=== PATIENT | female | born 1945 | race Caucasian/White ===

== ENCOUNTER → 2017-01-05 | Outpatient (CLI) | payer OTHER ==
--- NOTE | ~2017-01-05 | MY29 ---
[facility] A Service of [facility] RADIOLOGY TEXT RESULTS PATIENT: GREGORIA GARCIA LOCATION: [facility] : 41 UNIT #: [id number] AGE: [address]: Santhosh Florian MD SEX: F ORDER DR: [id number] [facility] [address] [place], [place] [address] [id number] O MR#: [id number] #: [id number] NAME: GREGORIA GARCIA : 1945 SEX: F STUDY DATE/TIME: 01/05/2017 14:48 UNIT: [facility] ROOM: STUDY DESCRIPTION: MY GIOVANNI SCREENING W/ CAD BILAT Attending Physician: Santhosh Florian M.D. Referring Physician: Santhosh Florian M.D. Ordering Physician: Santhosh Florian M.D. Primary Care Physician: Santhosh Florian M.D. MEDICAL IMAGING REPORT This report is preliminary unless electronic signature is present EXAM Bilateral digital screening mammogram with CAD 01/05/2017 INDICATIONS 71-year-old female for routine screening. No reported problems and no personal or family history of breast cancer. No surgeries. 20 pound weight loss since her last mammogram. TECHNIQUE CC and MLO views of the breasts were obtained and reviewed with an approved CAD device. Exaggerated CC lateral view performed on the left. COMPARISON 01/29/11, 01/21/11, 02/23/08 FINDINGS Breast parenchyma is heterogeneously dense with a fibronodular pattern. This is unchanged but degrades the sensitivity of screening mammography. There is no new dominant nodule or mass in either breast. No new suspicious clustered microcalcifications. Benign calcifications and benign-appearing nodularity not significantly changed. IMPRESSION 1. Benign dense mammogram. One year follow up recommended. Patients over the age of 40 are entered into a reminder system with target due date for the next mammogram. A result letter will also be sent to the patient. BIRADS: 2- benign findings Dictated by... Jose Clark M.D. [facility] A Service of [facility] RADIOLOGY TEXT RESULTS PATIENT: GREGORIA GARCIA LOCATION: [facility] : 41 UNIT #: [id number] AGE: [address]: Santhosh Florian MD SEX: F ORDER DR: THIS IS AN ELECTRONICALLY VERIFIED REPORT Jose Clark M.D. at 01/06/2017 5:23 PM Bo TD: 01/06/2017 13:27 JOB #: [id number] MEDICAL IMAGING REPORT Page 1 of 1 COPY
--- NOTE | ~2017-01-05 | CT138 ---
[facility] A Service of [facility] RADIOLOGY TEXT RESULTS PATIENT: GREGORIA GARCIA LOCATION: [facility] : 41 UNIT #: [id number] AGE: [address]: Santhosh Florian MD SEX: F ORDER DR: [id number] [facility] [address] [place], [place] [address] [id number] O MR#: [id number] Acc #: [id number] NAME: GREGORIA GARCIA : 1945 SEX: F STUDY DATE/TIME: 01/05/2017 15:15 UNIT: [facility] ROOM: STUDY DESCRIPTION: CT Lung screening initial Attending Physician: Santhosh Florian M.D. Referring Physician: Santhosh Florian M.D. Ordering Physician: Santhosh Florian M.D. Primary Care Physician: Santhosh Florian M.D. MEDICAL IMAGING REPORT This report is preliminary unless electronic signature is present EXAM CT lung cancer screening. INDICATIONS Lung cancer screening. 55-pack/year smoking history. PROCEDURE Unenhanced low-dose CT of the chest performed per lung cancer screening protocol. This CT exam was performed with one or more of the following radiation dose reduction techniques: automatic exposure control, adjustment of mA and/or kV according to patient size, and iterative reconstruction. CTDI 2.6 mGy, total DLP 99 mGycm COMPARISON None FINDINGS There is a 5-mm somewhat irregular nodule in the right apex. No other nodule is seen. No adenopathy. No acute findings in the included upper abdomen. No aggressive-appearing bone lesion. IMPRESSION 5-mm nodule in the right apex. Lung-RADS category: 3 - probably benign. Per the ACR Lung-RADS recommendation, suggest patient return for a 6-month followup low-dose chest CT. [facility] A Service [facility] RADIOLOGY TEXT RESULTS PATIENT: GREGORIA GARCIA LOCATION: [facility] : 41 UNIT #: [id number] AGE: [address]: Santhosh Florian MD SEX: F ORDER DR: Dictated by... Sidney Montanez M.D. THIS IS AN ELECTRONICALLY VERIFIED REPORT Sidney Montanez M.D. at 01/07/2017 9:57 PM FELIPE/myrtle TD: 01/05/2017 17:43 JOB #: [id number] MEDICAL IMAGING REPORT Page 1 of 1 COPY
== END | disposition home or self-care (01) ==
LOC: CWCC 13:57
DX: Z12.31 Encounter for screening mammogram for malignant neoplasm of breast (principal); F17.210 Nicotine dependence, cigarettes, uncomplicated
CPT/HCPCS: G0202; G0297